=== PATIENT | male | born 1990 | race Caucasian/White ===

== ENCOUNTER 2020-06-10 10:02 | Emergency (ER) | payer MEDICAID ==
[~2020-06-10] VITALS: Ht 180.3 cm; Wt 77.5 kg
[2020-06-10] MEDS ORDERED: LORazepam 2 mg/ml vial IV ONE ×2 (11:30→12:40)
[2020-06-10] MEDS ORDERED: ondansetron/PF 4mg/2ml inj IV ONE (11:30)
[2020-06-10] MEDS ORDERED: normal saline 1000ML IV soln IVB ONE (11:30)
[2020-06-10 11:54] LABS: ETHANOL < 0.010 GM/DL (0.0-0.010)
[2020-06-10 12:03] LABS: BASOPHILS % (AUTO) 0.6 % (0-1); EOSINOPHILS # (AUTO) 0.1 X10'3 (0-0.9); EOSINOPHILS % (AUTO) 0.8 % (0-6); HEMATOCRIT 49.4 % (42.0-52.0); HEMOGLOBIN 17.1 g/dl (14.0-17.9); LYMPHOCYTES # (AUTO) 1.4 X10'3 (1.1-4.8); MEAN CORPUSCULAR HEMOGLOBIN 31.3 PG (27.0-31.0); MEAN CORPUSCULAR HGB CONC 34.5 g/dL (33.0-36.5); MEAN CORPUSCULAR VOLUME 90.6 FL (78-98); MEAN PLATELET VOLUME 7.6 FL (7.4-10.4); MONOCYTES # (AUTO) 0.7 X10'3 (0-0.9); MONOCYTES % (AUTO) 8.5 % (2-12); NEUTROPHILS # (AUTO) 5.6 X10'3 (1.8-7.7); NEUTROPHILS % (AUTO) 72.1 % (42-75); PLATELET COUNT 276 X10'3 (140-440); RED BLOOD COUNT 5.45 X10'6 (4.70-6.10); RED CELL DISTRIBUTION WIDTH 14.7 % (11.5-14.5); WHITE BLOOD COUNT 7.8 X10'3 (4.5-11.0)
[2020-06-10 12:07] LABS: ALANINE AMINOTRANSFERASE 28 U/L (12-78); ALBUMIN 4.4 G/DL (3.4-5.0); ALBUMIN/GLOBULIN RATIO 1.4 (1.1-1.5); ALKALINE PHOSPHATASE 74 IU/L (46-116); ANION GAP 13 (8-16); ASPARTATE AMINO TRANSFERASE 21 U/L (10-37); BILIRUBIN,TOTAL 0.8 MG/DL (0.1-1.0); BLOOD UREA NITROGEN 14 MG/DL (7-18); BUN/CREATININE RATIO 13.1 (5.4-32.0); CALCIUM 9.3 MG/DL (8.5-10.1); CHLORIDE 100 MMOL/L (99-107); CREATININE 1.07 MG/DL (0.60-1.10); GLUCOSE 94 MG/DL (70-104); POTASSIUM 3.7 MMOL/L (3.5-5.1); SODIUM 139 MMOL/L (135-145); TOTAL CARBON DIOXIDE 26.4 MMOL/L (24-32); TOTAL PROTEIN 7.6 G/DL (6.4-8.2); eGFR 80 ML/MIN
[2020-06-10 12:08] LABS: PARTIAL THROMBOPLASTIN TIME 27 SECONDS (22-32)
[2020-06-10 13:08] LABS: URINE AMPHETAMINE SCREEN NEGATIVE (Neg); URINE BARBITUATE SCREEN NEGATIVE (Neg); URINE BENZODIAZEPINES SCREEN NEGATIVE (Neg); URINE CANNABINOID SCREEN POSITIVE (Neg); URINE COCAINE SCREEN NEGATIVE (Neg); URINE METHADONE SCREEN NEGATIVE (Neg); URINE OPIATE SCREEN NEGATIVE (Neg); URINE PHENCYCLIDINE SCREEN NEGATIVE (Neg)
[2020-06-10 14:15] VITALS: BP 119/64
== END 2020-06-10 14:15 | disposition home or self-care (01) ==
LOC: ER 10:03
DX: F10.129 Alcohol abuse with intoxication, unspecified (principal); R11.2 Nausea with vomiting, unspecified; R53.1 Weakness; F17.200 Nicotine dependence, unspecified, uncomplicated; Y90.0 Blood alcohol level of less than 20 mg/100 ml
CPT/HCPCS: 36415; 80053; 80305; 80320; 84443; 85025; 85610; 85730; 96361; 96374; 96375; 96376; 99284; J2060; J2405; J7030

== ENCOUNTER 2021-09-22 03:40 | Inpatient (IN) | payer MEDICAID ==
[~2021-09-22] VITALS: Ht 177.8 cm; Wt 65.8 kg
--- NOTE | 2021-09-22 04:17 | NUR ---
Patient moved to room 20 from ER room 8, accompanied by DREW Lopes. The patient climbed in bed and went right to sleep.
[2021-09-22 04:26] LABS: ALANINE AMINOTRANSFERASE 34 U/L (12-78); ALBUMIN 4.2 G/DL (3.4-5.0); ALBUMIN/GLOBULIN RATIO 1.3 (1.1-1.5); ALKALINE PHOSPHATASE 69 IU/L (46-116); ANION GAP 11 (8-16); ASPARTATE AMINO TRANSFERASE 17 U/L (10-37); BILIRUBIN,TOTAL 0.3 MG/DL (0.1-1.0); BLOOD UREA NITROGEN 12 MG/DL (7-18); CALCIUM 8.3 MG/DL (8.5-10.1); CHLORIDE 104 MMOL/L (99-107); ETHANOL 0.105 GM/DL (0.0-0.010); GLUCOSE 96 MG/DL (70-104); POTASSIUM 3.7 MMOL/L (3.5-5.1); SODIUM 142 MMOL/L (135-145); TOTAL CARBON DIOXIDE 27.2 MMOL/L (24-32); TOTAL PROTEIN 7.4 G/DL (6.4-8.2); eGFR 86 ML/MIN
[2021-09-22 04:38] LABS: BASOPHILS # (AUTO) 0.1 X10'3 (0-0.2); BASOPHILS % (AUTO) 0.6 % (0-1); EOSINOPHILS # (AUTO) 0.1 X10'3 (0-0.9); EOSINOPHILS % (AUTO) 0.5 % (0-6); HEMATOCRIT 50.2 % (42.0-52.0); HEMOGLOBIN 17.8 g/dl (14.0-17.9); LYMPHOCYTES # (AUTO) 2.7 X10'3 (1.1-4.8); MEAN CORPUSCULAR HEMOGLOBIN 32.1 PG (27.0-31.0); MEAN CORPUSCULAR HGB CONC 35.5 g/dL (33.0-36.5); MEAN CORPUSCULAR VOLUME 90.7 FL (78-98); MEAN PLATELET VOLUME 7.4 FL (7.4-10.4); MONOCYTES # (AUTO) 0.8 X10'3 (0-0.9); MONOCYTES % (AUTO) 7.2 % (2-12); NEUTROPHILS # (AUTO) 7.1 X10'3 (1.8-7.7); NEUTROPHILS % (AUTO) 66.7 % (42-75); PLATELET COUNT 338 X10'3 (140-440); RED BLOOD COUNT 5.54 X10'6 (4.70-6.10); RED CELL DISTRIBUTION WIDTH 13.4 % (11.5-14.5); WHITE BLOOD COUNT 10.7 X10'3 (4.5-11.0)
--- NOTE | 2021-09-22 05:35 | NUR ---
Patient asleep in supine position. rr even and unlabored. No s/s of distress.
--- NOTE | 2021-09-22 06:17 | NUR ---
Patient sleeping on right side. No distress observed. Continue to monitor.
--- NOTE | 2021-09-22 08:10 | NUR ---
Kayode marrero in ED - 09/22/21 at 0826 by BRITT Patient sitting up in her bed eating breakfast. No distress observed. Continue to monitor.
--- NOTE | 2021-09-22 08:12 | NUR ---
Patient's food at bedside. Patient awakened for breakfast but went back to sleep. No distress observed. Continue to monitor.
[2021-09-22 09:07] LABS: CLARITY,URINE CLEAR (Clear); COLOR,URINE YELLOW (Yellow); PH,URINE 6.5 (4.8-8.0); UA COLLECTION TYPE CLN CATCH MIDSTREAM
[2021-09-22 09:08] LABS: GLUCOSE, URINE NEGATIVE (Neg); KETONES,URINE NEGATIVE (Neg); LEUKOCYTE ESTERASE ,URINE NEGATIVE (Neg); NITRITES, URINE NEGATIVE (Neg); OCCULT BLOOD,URINE NEGATIVE (Neg); PROTEIN,URINE NEGATIVE (Neg); UROBILINOGEN,URINE 0.2 E.U/dL (0.2-1.0)
--- NOTE | 2021-09-22 09:10 | NUR ---
RN went to patient's bedside and looked at left arm. Superficial cuts. No wound dressing needed. RN asked patient what happened. Patient just looked away and would not answer any of my questions. RN explained that we are awaiting [facility] and they would speak to him later today. Ptient did not acknowledge me or the information I gave him. Continue to monitor.
[2021-09-22 09:14] LABS: URINE AMPHETAMINE SCREEN NEGATIVE (Neg); URINE BARBITUATE SCREEN NEGATIVE (Neg); URINE BENZODIAZEPINES SCREEN NEGATIVE (Neg); URINE CANNABINOID SCREEN NEGATIVE (Neg); URINE COCAINE SCREEN NEGATIVE (Neg); URINE METHADONE SCREEN NEGATIVE (Neg); URINE OPIATE SCREEN NEGATIVE (Neg); URINE PHENCYCLIDINE SCREEN NEGATIVE (Neg)
--- NOTE | 2021-09-22 09:37 | NUR ---
Packet faxed to [facility]
--- NOTE | 2021-09-22 11:05 | NUR ---
Patient sleeping on right side. No distress observed. Continue to monitor.
[2021-09-22] MEDS: TETanus/Pertussis (Acell)/Diphther VAC/PF (Tdap-Adult) 0.5ml syringe IMVAC ONE ×2 (12:47→12:50)
--- NOTE | 2021-09-22 12:50 | NUR ---
RN offered patient his TD vaccine because he used a box maker wood to cut several letters into his left arm. Patient refused the vaccine. RN explained the why he should get it. Patient still stated he didn't want it. Continue to monitor.
--- NOTE | 2021-09-22 13:14 | NUR ---
Patient's lunch at bedside. Patient states he is not that hungry. RN encouraged patient to eat something. Continue to monitor.
--- NOTE | 2021-09-22 14:29 | NUR ---
Patient sleeping on left side. No distress observed. Continue to monitor.
--- NOTE | 2021-09-22 16:18 | NUR ---
Patient sleeping on right side. No distress observed. Continue to monitor.
[2021-09-22] MEDS ORDERED: NO HOME MEDS (19:21)
--- NOTE | 2021-09-22 19:21 | NUR ---
One to one with the patient to assess for severity of mental health symptoms. The patient has long curly hair that is uncombed and appears to be greasy and unwashed. During the assessment his replies were slowed and monotone. He refused his dinner. He denies that he is paranoid about food but did report his appetite is very poor. Eye contact was minimal. Stated he has had previous diagnosis of ADD, Schizophrenia, bipolar, depression and dysphoric jina. He reports prior inpatient hospitalizations. He stated he has not been taking any medications and is refusing to accept psychiatric medications and stated because "they tell him not to" His insight and judgement is very poor. He is very hopeless and helpless about his life. Feels outside people are destroying his life and carreer. He is seeing people in the community that stare at hime and added, "There's so many of them. Its impossible and what they do they just errorize you. There's no place they can't go and nothing they can't do" He feels he is constantly being followed and he receives messages from his phone, TV and radio"
[2021-09-22] MEDS ORDERED: Melatonin 3mg tablet PO ONE (21:40)
--- NOTE | 2021-09-22 21:43 | NUR ---
The patient is unable to sleep and agrees to try melatonin. Spoke with Reba NESBITT and orders received.
--- NOTE | 2021-09-22 23:01 | NUR ---
The patient is awake and requested/received juice.
--- NOTE | 2021-09-23 01:20 | NUR ---
The patient is resting on his bed and may be asleep
--- NOTE | 2021-09-23 03:47 | NUR ---
The patient appears to be sleeping
--- NOTE | 2021-09-23 05:13 | NUR ---
The patient appears to be sleeping
--- NOTE | 2021-09-23 07:19 | NUR ---
Received patient, resting quietly in bed at this time. No s/sx Acute distress.
--- NOTE | 2021-09-23 08:58 | NUR ---
Awakened for breakfast which patient eats independently, no s/sx acute distress, resting quietly in bed at this time.
--- NOTE | 2021-09-23 12:38 | NUR ---
Patient resting quietly in bed. Appears somwhat irritable when spoken to. "States, "I don't know what's going on." Patient informed he was being moved to a bed upstairs to which patient replies with flat affect, "Great."
[2021-09-23 12:57] VITALS: BP 128/83
--- NOTE | 2021-09-23 13:20 | NUR ---
Transfered to [facility]
[2021-09-23] MEDS ORDERED: magnesium hydroxide 30ml (MOM) UD suspension PO PRN (13:30)
[2021-09-23] MEDS ORDERED: mag hydrox/Alum hydrox/simeth 30ml oral suspension PO PRN (13:30)
[2021-09-23] MEDS ORDERED: loperamide 2mg capsule PO PRN (13:30)
[2021-09-23] MEDS ORDERED: acetaminophen 325mg tablet PO PRN ×2 (13:30)
[2021-09-23] MEDS ORDERED: nicotine 14mg patch - 24hr TD ONE (15:05)
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
[2021-09-23 19:00] VITALS: BP 118/70
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
[2021-09-24] MEDS: nicotine 14mg patch - 24hr TD SCH (07:30)
[2021-09-24 07:34] VITALS: BP 135/94
[2021-09-24 09:04] LABS: HEMOGLOBIN A1C 5.1 % (4.5-6.2)
[2021-09-24 09:06] LABS: CHOL/HDL RATIO 3.2 (0.00-4.99); CHOLESTEROL 132 MG/DL (0-200); HDL CHOLESTEROL 41 MG/DL (35-60); LDL CHOLESTEROL 75 MG/DL (50-100); TRIGLYCERIDES 81 MG/DL (20-135)
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
[2021-09-24 19:41] VITALS: BP 131/81
[2021-09-24] MEDS: traZODone 50mg tablet PO SCH (21:18)
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
[2021-09-25] MEDS ORDERED: LORazepam 1 MG tablet PO ONE (07:05)
[2021-09-25] MEDS ORDERED: haloperidol 5mg tablet PO ONE (07:05)
[2021-09-25] MEDS: nicotine 14mg patch - 24hr TD SCH (10:46)
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
--- NOTE | 2021-09-25 15:46 | NUR ---
Pt has a new order for Zyprexa 10 mg HS.
[2021-09-25 19:03] VITALS: BP 108/70
[2021-09-25] MEDS: olanzapine 10mg tablet PO SCH (20:10)
[2021-09-25] MEDS: LORazepam 1 MG tablet PO PRN (20:10)
[2021-09-25] MEDS: traZODone 50mg tablet PO SCH (20:10)
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
[2021-09-26 08:14] VITALS: BP 108/67
[2021-09-26] MEDS: nicotine 14mg patch - 24hr TD SCH (08:54)
--- NOTE | 2021-09-26 10:50 | NUR ---
Father, Adam Vgea:
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
[2021-09-26 19:46] VITALS: BP 97/54
[2021-09-26] MEDS: traZODone 50mg tablet PO SCH (21:00)
[2021-09-26] MEDS: olanzapine 10mg tablet PO SCH (21:34)
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
[2021-09-27 07:46] VITALS: BP 115/65
[2021-09-27] MEDS: LORazepam 1 MG tablet PO PRN (09:05)
[2021-09-27] MEDS: nicotine 14mg patch - 24hr TD SCH (09:05)
--- NOTE | 2021-09-27 10:31 | NUR ---
Pt. attended group today. We talked about how we all look at the world differently due to our core beliefs. These core beliefs then inform thoughts and behaviors. Each pt. identified one negative core belief and then wrote out three truths that contradict their negative beliefs to work on thinking differently. Pt. engaged well in the group. He was open and friendly. He shared his negative core belief and was able to work toward shifting it to a more positive thought. He was alert and oriented X 4. His thought content and thought process appeared WNL. He talked about how he has always felt different, like he didn't fit in so much. We talked about how he is unique. He appeared to enjoy the discussion and the new language. Ingrid Garza LCSW
--- NOTE | 2021-09-27 13:26 | NUR ---
PROBABLE CAUSE HEARING Patients Name: Enoch Vega Admission Date: 09/23/21 Date of 5150: 09/22/2021 Written by: [facility] and [facility] Criteria: DTS, DTO Summary of Facts: Joey father called to report a change in his son. He was cutting himself with a hot box operator, cutting letters into his arms and making statements that he was going to kill himself. He told the PO that he wanted to know the truth and would cut himself until he found the truth. Utox neg Date of 5250: 09/26/21 Written by: Criteria: GD Summary of Facts: Pt is guarded, not eating and has AH. Has a hx of poor compliance. No third alliance party assistance until he is stabilized. Diagnosis: Schizophrenia d/o depressive type Behavior during past 48 HRS: On the sixth he tried to leave and set off an alarm, during this time he stated "I'm not going to be alive long enough for you to scan my wristband...can't you see what's going on here? The torture!" Pt was shaking, his voice was tremulous. He appeared frightened and paranoid. His medications were increased and he spent yesterday sleeping FOOD: 40% average over last three days SLEEPIN.5 hours ADLS: Not doing, malodorous SENIOR CARE: Parents are willing to take back if stabilized and taking medications MEDICATION DOSAGE FREQUENCY DURATION Trazodone 100 mg po q hs Zyprexa 10 mg po q hs Ativan 1 mg po q 8 prn last took today
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
[2021-09-27] MEDS: traZODone 50mg tablet PO SCH (20:13)
[2021-09-27] MEDS: olanzapine 10mg tablet PO SCH (20:13)
[2021-09-27 20:27] VITALS: BP 98/56
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
[2021-09-28 07:48] VITALS: BP 98/56
[2021-09-28] MEDS: nicotine 14mg patch - 24hr TD SCH (07:50)
--- NOTE | 2021-09-28 15:08 | NUR ---
Initial: Pt admit for schizoaffective disorder. Currently on a regular diet and initially eating poorly with 0-25% the first several meals however with 75-100% PO intake since dinner 09/25 with the exception of refusing lunch 09/26. LBM 09/25, with PRN bowel care available. No nutrition intervention implemented at this time. Will continue to follow. Recommendations: 1) Continue regular diet 2) Bowel care PRN 3) Weekly scaled weights Addendum: 09/28/21 at [address] Amended: Links added.
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
[2021-09-28 19:29] VITALS: BP 106/64
[2021-09-28] MEDS: olanzapine 10mg tablet PO SCH (20:15)
[2021-09-28] MEDS: traZODone 50mg tablet PO SCH (20:16)
[2021-09-28] MEDS: LORazepam 1 MG tablet PO PRN (23:07)
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
[2021-09-29 08:00] VITALS: BP 118/73
[2021-09-29] MEDS: hydrOXYzine 25 MG tablet PO SCH ×3 (08:00→20:17)
[2021-09-29] MEDS: nicotine 14mg patch - 24hr TD SCH (11:07)
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
[2021-09-29 19:38] VITALS: BP 111/72
[2021-09-29] MEDS: olanzapine 10mg tablet PO SCH ×2 (20:17→21:00)
[2021-09-29] MEDS: traZODone 50mg tablet PO SCH (20:17)
[2021-09-29] MEDS: LORazepam 1 MG tablet PO PRN (20:23)
--- NOTE | 2021-09-29 20:57 | NUR ---
Nicotine patch removed
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
--- NOTE | 2021-09-29 21:52 | NUR ---
RE meds: Pt was resistant to taking meds this evening for nurse that is being precepted. Went in to talk w/pt and he has wrapped himself tightly in blankets. Pt is fearful and states he wants to have injections because he thinks his parents are going to give him the injections "to help so my depression won't be so bad." Pt states he doesnt want to take pills because it "seems like a lot of pills, maybe it's too many." Pt was already given prn ativan so agreed pt probably didnt need atarax tonight. Pt reports that he is hearing voices, cant make out what the voices are saying and he is just hearing conversations. Explained to pt that the voices may have gone away last night and earlier today because he took his zyprexa last night. Provided pt with education on zyprexa and encouraged pt to take zyprexa but he continues to refuse. "I just dont care to take that medicine, so I'm not going to."
[2021-09-30 07:26] VITALS: BP 125/79
[2021-09-30] MEDS: hydrOXYzine 25 MG tablet PO SCH ×3 (08:00→20:32)
[2021-09-30] MEDS: nicotine 14mg patch - 24hr TD SCH (08:33)
[2021-09-30] MEDS: LORazepam 1 MG tablet PO PRN (09:49)
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
[2021-09-30 19:14] VITALS: BP 114/71
[2021-09-30] MEDS: olanzapine 10mg tablet PO SCH (20:31)
[2021-09-30] MEDS: traZODone 50mg tablet PO SCH (20:44)
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
[2021-10-01 07:15] VITALS: BP 120/71
[2021-10-01] MEDS: hydrOXYzine 25 MG tablet PO SCH ×2 (08:00→20:00)
[2021-10-01] MEDS: nicotine 14mg patch - 24hr TD SCH (08:25)
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
[2021-10-01 19:23] VITALS: BP 122/74
[2021-10-01] MEDS: traZODone 50mg tablet PO SCH (20:24)
[2021-10-01] MEDS ORDERED: OLANZAPINE 5 MG TABLET PO SCH (21:00)
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
[2021-10-02 07:49] VITALS: BP 116/70
[2021-10-02] MEDS: lactose-reduced food (Ensure Enlive) - 237ml bottle PO SCH ×2 (08:00→18:21)
[2021-10-02] MEDS: hydrOXYzine 25 MG tablet PO SCH ×2 (08:00→20:00)
[2021-10-02] MEDS: nicotine 14mg patch - 24hr TD SCH (08:19)
[2021-10-02] MEDS: LORazepam 1 MG tablet PO PRN (09:24)
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
[2021-10-02 19:22] VITALS: BP 107/68
[2021-10-02] MEDS: traZODone 50mg tablet PO SCH (21:00)
[2021-10-02] MEDS: olanzapine 10mg tablet PO SCH (21:00)
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
[2021-10-03 08:00] VITALS: BP 100/51
[2021-10-03] MEDS: hydrOXYzine 25 MG tablet PO SCH ×2 (08:00→20:00)
[2021-10-03] MEDS: lactose-reduced food (Ensure Enlive) - 237ml bottle PO SCH ×3 (08:00→18:16)
[2021-10-03] MEDS: nicotine 14mg patch - 24hr TD SCH (08:23)
[2021-10-03] MEDS: LORazepam 1 MG tablet PO PRN ×2 (09:36→20:29)
[2021-10-03] MEDS: NICOTINE POLACRILEX 2 MG LOZENGE BC PRN (15:54)
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
[2021-10-03 19:00] VITALS: BP 117/66
[2021-10-03] MEDS: traZODone 50mg tablet PO SCH (20:05)
[2021-10-03] MEDS: olanzapine 10mg tablet PO SCH (20:05)
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
[2021-10-04 07:43] VITALS: BP 114/68
[2021-10-04] MEDS: nicotine 14mg patch - 24hr TD SCH (08:27)
[2021-10-04] MEDS: lactose-reduced food (Ensure Enlive) - 237ml bottle PO SCH ×3 (10:53→18:00)
--- NOTE | 2021-10-04 12:33 | NUR ---
Reassessment: Pt had mostly 100% intake from 09/27-09/30 and now mostly refuses meals. Ensure Enlive TID was ordered 10/02 w/ avg 66% intake partially meeting needs. Pt noted to frequently refuse some care and meds. LBM 09/30 w/ PRN bowel care available. Since pt drinking some ONS, will provide shakes with meals to hopefully provide additional calories. Will continue to monitor. Recommendations: 1) Continue regular diet 2) Shakes TIDWM 3) Bowel care PRN 4) Weekly scaled weights Addendum: 10/04/21 at [address] Amended: Links added.
[2021-10-04] MEDS: hydrOXYzine 25 MG tablet PO SCH ×3 (12:54→20:58)
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
[2021-10-04] MEDS: LORazepam 1 MG tablet PO PRN (17:24)
--- NOTE | 2021-10-04 18:08 | NUR ---
Adam patient father #[phone]
[2021-10-04 20:37] VITALS: BP 107/70
[2021-10-04] MEDS: traZODone 50mg tablet PO SCH (20:58)
[2021-10-04] MEDS: olanzapine 10mg tablet PO SCH (20:58)
[2021-10-04] MEDS ORDERED: PALIPERIDONE 3 MG TAB.ER.24 PO SCH (21:00)
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
[2021-10-05 07:24] VITALS: BP 100/54
[2021-10-05] MEDS: hydrOXYzine 25 MG tablet PO SCH ×4 (08:00→21:00)
[2021-10-05] MEDS: nicotine 14mg patch - 24hr TD SCH (08:00)
[2021-10-05] MEDS: lactose-reduced food (Ensure Enlive) - 237ml bottle PO SCH ×3 (08:00→18:00)
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
[2021-10-05] MEDS: NICOTINE POLACRILEX 2 MG LOZENGE BC PRN (16:31)
[2021-10-05 19:21] VITALS: BP 96/54
[2021-10-05] MEDS: olanzapine 10mg tablet PO SCH ×2 (20:11→21:00)
[2021-10-05] MEDS: traZODone 50mg tablet PO SCH ×2 (20:11→21:00)
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
[2021-10-06 07:26] VITALS: BP 106/64
[2021-10-06] MEDS: hydrOXYzine 25 MG tablet PO SCH ×5 (07:55→20:23)
[2021-10-06] MEDS: lactose-reduced food (Ensure Enlive) - 237ml bottle PO SCH ×3 (07:57→17:56)
[2021-10-06] MEDS: nicotine 14mg patch - 24hr TD SCH (07:57)
[2021-10-06] MEDS ORDERED: PALIPERIDONE 3 MG TAB.ER.24 PO SCH (10:00)
[2021-10-06] MEDS: LORazepam 1 MG tablet PO PRN (14:24)
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
[2021-10-06] MEDS: traZODone 50mg tablet PO SCH ×2 (20:23→20:29)
[2021-10-06 20:27] VITALS: BP 109/57
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
[2021-10-07 07:22] VITALS: BP 125/76
[2021-10-07] MEDS: nicotine 14mg patch - 24hr TD SCH (08:20)
[2021-10-07] MEDS: lactose-reduced food (Ensure Enlive) - 237ml bottle PO SCH ×3 (08:20→18:03)
[2021-10-07] MEDS: PALIPERIDONE 3 MG TAB.ER.24 PO SCH (10:12)
[2021-10-07] MEDS: hydrOXYzine 25 MG tablet PO SCH ×3 (10:12→20:00)
[2021-10-07] MEDS ORDERED: paliperidone palmitate inj 234 MG/1.5 ML SYRINGE IM ONE (11:05)
--- NOTE | 2021-10-07 13:26 | NUR ---
Pt. attended group today. We talked about Communication today focusing on how to utilize I messages. This Immunochemist shared how to create an I message and then we practiced writing them on the board. Pt. sat very quietly throughout the group. He declined sharing his thoughts with the group. When asked by this Immunochemist what he thought of the group, he reported that he really liked it and followed along with it well. He shared that [employer]ism chakras are " I feel, I see, I hear, etc so it reminded him of that. His demeanor was calm and compliant. His affect tends to be flat and he mostly stares looking forward and not really making much eye contact when he speaks. Ingrid Garza LCSW
[2021-10-07] MEDS: LORazepam 1 MG tablet PO PRN ×2 (13:30→21:54)
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
[2021-10-07 20:00] VITALS: BP 116/65
[2021-10-07] MEDS: traZODone 50mg tablet PO SCH (21:00)
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
[2021-10-08 08:00] VITALS: BP 103/62
[2021-10-08] MEDS: lactose-reduced food (Ensure Enlive) - 237ml bottle PO SCH (08:10)
[2021-10-08] MEDS: nicotine 14mg patch - 24hr TD SCH (08:10)
[2021-10-08] MEDS: hydrOXYzine 25 MG tablet PO SCH ×3 (10:19→20:00)
[2021-10-08] MEDS: PALIPERIDONE 3 MG TAB.ER.24 PO SCH (10:20)
[2021-10-08] MEDS: LORazepam 1 MG tablet PO PRN ×2 (13:07→21:02)
[2021-10-08] MEDS: NICOTINE POLACRILEX 2 MG LOZENGE BC PRN (14:43)
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
[2021-10-08 20:00] VITALS: BP 126/68
[2021-10-08] MEDS: traZODone 50mg tablet PO SCH (20:27)
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
[2021-10-09 08:08] VITALS: BP 103/69
[2021-10-09] MEDS: nicotine 14mg patch - 24hr TD SCH (08:46)
[2021-10-09] MEDS: PALIPERIDONE 3 MG TAB.ER.24 PO SCH (10:44)
[2021-10-09] MEDS: hydrOXYzine 25 MG tablet PO SCH ×3 (10:44→20:00)
--- NOTE | 2021-10-09 12:31 | NUR ---
Reassessment: Pt continues on regular diet with significant improvement in PO intake, documented with mostly 75-100% PO intake since 10/06. ONS have been discontinued since 10/08. Pt continues receiving a shake TIDWM. LBM 10/05, with PRN bowel care available. D/w dietary to send prunes and prune juice with next meal to assist with bowel regularity. Will continue to follow and monitor need for further nutrition intervention. Recommendations: 1) Continue regular diet 2) Shakes TIDWM 3) Bowel care PRN 4) Weekly scaled weights Addendum: 10/09/21 at [address] Amended: Links added.
[2021-10-09] MEDS: LORazepam 1 MG tablet PO PRN (13:23)
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
[2021-10-09 20:00] VITALS: BP 109/71
[2021-10-09] MEDS: traZODone 50mg tablet PO SCH (20:56)
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
[2021-10-10 08:00] VITALS: BP 128/78
[2021-10-10 08:03] VITALS: BP 98/54
[2021-10-10] MEDS: nicotine 14mg patch - 24hr TD SCH (08:17)
[2021-10-10] MEDS: hydrOXYzine 25 MG tablet PO SCH ×3 (10:15→20:00)
[2021-10-10] MEDS: PALIPERIDONE 3 MG TAB.ER.24 PO SCH (10:15)
[2021-10-10] MEDS: NICOTINE POLACRILEX 2 MG LOZENGE BC PRN (11:22)
[2021-10-10] MEDS: LORazepam 1 MG tablet PO PRN ×2 (13:40→21:29)
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
[2021-10-10 19:25] VITALS: BP 141/74
[2021-10-10] MEDS: traZODone 50mg tablet PO SCH (20:41)
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
[2021-10-11] MEDS ORDERED: paliperidone palmitate 156 mg/ml inj.**IM only IM ONE (07:30)
[2021-10-11 08:24] VITALS: BP 102/54
[2021-10-11] MEDS: nicotine 14mg patch - 24hr TD SCH (08:41)
[2021-10-11] MEDS: PALIPERIDONE 3 MG TAB.ER.24 PO SCH (10:00)
[2021-10-11] MEDS: hydrOXYzine 25 MG tablet PO SCH ×2 (10:28→14:00)
[2021-10-11] MEDS: NICOTINE POLACRILEX 2 MG LOZENGE BC PRN (13:03)
[2021-10-11] MEDS ORDERED: PALI156D IM (13:37)
[2021-10-11] MEDS ORDERED: NICO-631 TD (13:37)
[2021-10-11] MEDS ORDERED: TRAZ-251 PO (13:37)
[2021-10-11] MEDS ORDERED: NICO-907 BC (13:37)
[2021-10-11] MEDS ORDERED: HYDR-3686 PO (13:37)
--- NOTE | 2021-10-11 14:27 | NUR ---
DISCHARGE NOTE: Patient's parents came up to visit this morning and had a good visit. Patient is anxious to be discharged, but is cooperative with process. Patient will follow-up with [facility] for his monthly invega injection. Patient verbalizes understanding of discharge instructions. Patient is discharged in stable condition.
== END 2021-10-11 14:27 | disposition home or self-care (01) | DRG 750 ==
LOC: ER 03:40 → ED HOLD 09-23 10:55 → ADULT MH 09-23 13:23
PROVIDERS: ADMIT Psychiatry & Neurology Psychiatry; ATTEND Psychiatry & Neurology Psychiatry
DX: F25.1 Schizoaffective disorder, depressive type (principal); R45.851 Suicidal ideations; Z91.14 Patient's other noncompliance with medication regimen; F17.210 Nicotine dependence, cigarettes, uncomplicated; F41.9 Anxiety disorder, unspecified; F10.10 Alcohol abuse, uncomplicated; S40.812A Abrasion of left upper arm, initial encounter; X78.8XXA Intentional self-harm by other sharp object, initial encounter; Z20.822 Contact with and (suspected) exposure to COVID-19; R63.0 Anorexia; Z81.8 Family history of other mental and behavioral disorders; Z68.20 Body mass index [BMI] 20.0-20.9, adult; Z28.21 Immunization not carried out because of patient refusal; Y93.89 Activity, other specified; Y92.89 Other specified places as the place of occurrence of the external cause; Y99.8 Other external cause status; Z71.6 Tobacco abuse counseling
CPT/HCPCS: 36415; 80053; 80061; 80305; 80320; 81003; 83036; 84443; 85025; 87081; 87635; 90715; 99285; C9803; Q0177

== ENCOUNTER 2022-08-06 09:15 | Emergency (ER) | payer MEDICAID ==
[~2022-08-06 09:15] MED LIST: HYDR-3686 PO; NICO-631 TD; NICO-907 BC; NO HOME MEDS; PALI156D IM; TRAZ-251 PO
== END 2022-08-06 09:27 | disposition left against medical advice (07) ==
LOC: ER 09:16
DX: Z00.8 Encounter for other general examination (principal); Z53.21 Procedure and treatment not carried out due to patient leaving prior to being seen by health care provider

== ENCOUNTER 2022-08-07 15:52 | Emergency (ER) | payer MEDICAID ==
[~2022-08-07] VITALS: Ht 180.3 cm; Wt 72.7 kg
[2022-08-07] MEDS ORDERED: normal saline 1000ML IV soln IVB ONE (16:25)
[2022-08-07 18:12] VITALS: BP 137/88
== END 2022-08-07 18:15 | disposition home or self-care (01) ==
LOC: ER 15:53
DX: F10.129 Alcohol abuse with intoxication, unspecified (principal); Y90.9 Presence of alcohol in blood, level not specified; F20.9 Schizophrenia, unspecified; Z79.899 Other long term (current) drug therapy
CPT/HCPCS: 96360; 99283; J7030

== ENCOUNTER 2022-08-10 09:01 | Emergency (ER) | payer MEDICAID ==
[~2022-08-10] VITALS: Ht 180.3 cm; Wt 72.7 kg
[2022-08-10 09:52] VITALS: BP 144/97
[2022-08-10] MEDS ORDERED: LORazepam 2 mg/ml vial IV ONE ×2 (10:10→11:10)
[2022-08-10] MEDS ORDERED: normal saline 1000ML IV soln IVB ONE (10:10)
[2022-08-10] MEDS ORDERED: folic acid 1mg/0.2ml inj IV ONE (10:10)
[2022-08-10] MEDS ORDERED: thiamine 100mg/ml 2ml inj. IV ONE (10:10)
[2022-08-10] MEDS ORDERED: ondansetron/PF 4mg/2ml inj IV ONE (10:10)
[2022-08-10] MEDS ORDERED: GABA-530 PO (10:14)
[2022-08-10] MEDS ORDERED: ONDA4TAB12 PO (10:14)
[2022-08-10] MEDS ORDERED: LORA-269 PO (10:14)
== END 2022-08-10 11:34 | disposition home or self-care (01) ==
LOC: ER 09:01
DX: F10.239 Alcohol dependence with withdrawal, unspecified (principal); F10.20 Alcohol dependence, uncomplicated; F20.9 Schizophrenia, unspecified; Z72.89 Other problems related to lifestyle; Z79.899 Other long term (current) drug therapy; Y90.9 Presence of alcohol in blood, level not specified
CPT/HCPCS: 96361; 96374; 96375; 99284; J2060; J2405; J3411; J3490; J7030